=== PATIENT | male | born 1990 | race Caucasian/White ===

== ENCOUNTER 2017-12-04 17:51 | Inpatient (IN) | payer OTHER ==
[2017-12-04 17:45] VITALS: BP 135/89
[2017-12-04] MEDS ORDERED: LORAZEPAM 2 MG/1 ML VIAL IM PRN (18:30)
[2017-12-04] MEDS ORDERED: LORAZEPAM 1 MG TABLET PO PRN ×2 (18:30)
[2017-12-04] MEDS ORDERED: ACETAMINOPHEN 325 MG TABLET PO PRN (18:30)
[2017-12-04] MEDS ORDERED: IBUPROFEN 600 MG TABLET PO PRN (18:30)
[2017-12-04] MEDS ORDERED: MAG HYDROX/AL HYDROX/SIMETH 30 ML LIQUID UDC PO PRN (18:30)
[2017-12-04] MEDS ORDERED: diphenhydrAMINE 50 MG CAPSULE PO PRN (18:30)
[2017-12-04] MEDS ORDERED: THIAMINE HCL 200 MG/2 ML VIAL IM ONE (18:30)
[2017-12-04] MEDS ORDERED: MAGNESIUM HYDROXIDE 30 ML LIQUID UDC PO PRN (18:30)
[2017-12-04] MEDS ORDERED: ONDANSETRON ODT 4 MG TAB.RAPDIS SL PRN (18:30)
[2017-12-04] MEDS ORDERED: ENZY1CAP5 PO (23:06)
[2017-12-04] MEDS ORDERED: OXYM15SP NS (23:06)
[2017-12-04] MEDS ORDERED: TURM1CAP2 PO (23:06)
[2017-12-04] MEDS ORDERED: FOLI1TAB16 PO (23:06)
[2017-12-04] MEDS ORDERED: VITA-287 PO (23:06)
[2017-12-04] MEDS ORDERED: MILK175C4 PO (23:06)
[2017-12-04] MEDS ORDERED: CALC300T4 PO (23:06)
[2017-12-04] MEDS ORDERED: ZINC220C8 PO (23:06)
[2017-12-05] MEDS ORDERED: TUBERCULIN,PURIF.PROT.DERIV. 5 TU/0.1 ML TEST ID ONE (09:00)
[2017-12-05] MEDS ORDERED: MULTIVITAMINS,THERAPEUTIC TABLET PO SCH (09:00)
[2017-12-05] MEDS ORDERED: THIAMINE HCL 100 MG TABLET PO SCH (09:00)
[2017-12-05] MEDS ORDERED: FOLIC ACID 1 MG TABLET PO SCH (09:00)
== END 2017-12-04 19:45 | disposition left against medical advice (07) | DRG 894 ==
LOC: SRC 17:51
PROVIDERS: ADMIT Family Medicine Addiction Medicine; ATTEND Family Medicine Addiction Medicine
DX: F10.239 Alcohol dependence with withdrawal, unspecified (principal); Y90.9 Presence of alcohol in blood, level not specified; Z75.3 Unavailability and inaccessibility of health-care facilities
CPT/HCPCS: 36415; A4663

== ENCOUNTER 2017-12-04 21:24 | Inpatient (IN) | payer OTHER ==
[~2017-12-04] VITALS: Ht 182.9 cm; Wt 99.8 kg
--- NOTE | 2017-12-04 22:00 | NUR ---
Intake Pt is a 27 year old male being admitted for alcohol withdrawal, reported drinking Vodka 1/2 bottle/daily and Wine 1/2 bottle non-daily basis. Pt presented in intake, appeared irritable. Pt educated on the rules of the unit, regarding vital signs being taken Q4H, kitchen only to be accessed via staff member, smoking privileges only granted by nurse and any controlled substance to be wasted and not returned upon discharge. Pt educated on body search upon arrival to the unit. Pt became agitated and argumentative regarding the policy. However then stated, "whatever, okay, I'll do it". Admission to be completed upon pts arrival to the unit.
[2017-12-04] MEDS ORDERED: THIAMINE HCL 200 MG/2 ML VIAL IM ONE (22:15)
[2017-12-04] MEDS ORDERED: HYDROXYZINE PAMOATE 25 MG CAPSULE PO PRN (22:15)
[2017-12-04] MEDS ORDERED: ACETAMINOPHEN 325 MG TABLET PO PRN (22:15)
[2017-12-04] MEDS ORDERED: MIRALAX 17 GM POWD.PACK PO PRN (22:15)
[2017-12-04] MEDS ORDERED: diphenhydrAMINE 50 MG CAPSULE PO PRN (22:15)
[2017-12-04] MEDS ORDERED: DICYCLOMINE HCL 20 MG TABLET PO PRN (22:15)
[2017-12-04] MEDS ORDERED: MAGNESIUM HYDROXIDE 30 ML LIQUID UDC PO PRN (22:15)
[2017-12-04] MEDS ORDERED: ONDANSETRON 4 MG/2 ML VIAL IM PRN (22:15)
[2017-12-04] MEDS ORDERED: LORAZEPAM 2 MG/1 ML VIAL IM PRN (22:15)
[2017-12-04] MEDS ORDERED: ONDANSETRON ODT 4 MG TAB.RAPDIS SL PRN (22:15)
[2017-12-04] MEDS ORDERED: CLONIDINE HCL 0.1 MG TABLET PO PRN (22:15)
[2017-12-04] MEDS ORDERED: LOPERAMIDE HCL 2 MG CAPSULE PO PRN ×2 (22:15)
[2017-12-04] MEDS ORDERED: IBUPROFEN 600 MG TABLET PO PRN (22:15)
[2017-12-04] MEDS ORDERED: LORAZEPAM 1 MG TABLET PO PRN ×2 (22:15)
[2017-12-04] MEDS ORDERED: MAG HYDROX/AL HYDROX/SIMETH 30 ML LIQUID UDC PO PRN (22:15)
[2017-12-04 22:18] VITALS: BP 132/87
[2017-12-04 22:42] LABS: BASOPHILS # (AUTO) 0.1 K/uL (0.0-8.0); BASOPHILS % (AUTO) 1.2 % (0.0-2.0); EOSINOPHILS # (AUTO) 0.3 K/uL (0.0-0.7); EOSINOPHILS % (AUTO) 3.3 % (0.0-7.0); HEMATOCRIT 41.5 % (36.7-47.1); LYMPHOCYTES # (AUTO) 2.4 K/uL (20.0-40.0); LYMPHOCYTES % (AUTO) 27.8 % (20.5-51.5); MEAN CORPUSCULAR HEMOGLOBIN 29.5 uug (23.8-33.4); MEAN CORPUSCULAR HGB CONC 34 g/dL (32.5-36.3); MEAN CORPUSCULAR VOLUME 87.1 fL (73.0-96.2); MONOCYTES # (AUTO) 0.7 K/uL (2.0-10.0); MONOCYTES % (AUTO) 8.6 % (0.0-11.0); NEUTROPHILS # (AUTO) 5.2 K/uL (1.8-8.9); NEUTROPHILS % (AUTO) 59.1 % (38.5-71.5); PLATELET COUNT (AUTO) 301 K/uL (152-348); RED BLOOD CELL COUNT(AUTO) 4.77 MIL/uL (4.06-5.63); WHITE BLOOD COUNT (AUTO) 8.7 K/uL (3.6-10.2)
[2017-12-04 23:00] LABS: BILIRUBIN,TOTAL 0.2 mg/dL (0.2-1.0); POTASSIUM 3.5 mmol/L (3.5-5.1); TOTAL PROTEIN, SERUM 8.1 g/dL (6.4-8.2)
[2017-12-04] MEDS ORDERED: FOLI1TAB16 PO (23:06)
[2017-12-04] MEDS ORDERED: MILK175C4 PO (23:06)
[2017-12-04] MEDS ORDERED: VITA-287 PO (23:06)
[2017-12-04] MEDS ORDERED: TURM1CAP2 PO (23:06)
[2017-12-04] MEDS ORDERED: ENZY1CAP5 PO (23:06)
[2017-12-04] MEDS ORDERED: OXYM15SP NS (23:06)
[2017-12-04] MEDS ORDERED: ZINC220C8 PO (23:06)
[2017-12-04] MEDS ORDERED: CALC300T4 PO (23:06)
[2017-12-04 23:20] LABS: *AMPHETAMINE, URINE NEGATIVE (NEGATIVE); *BARBITURATE, URINE NEGATIVE (NEGATIVE); *CANNABINOID, URINE NEGATIVE (NEGATIVE); *COCCAINE, URINE NEGATIVE (NEGATIVE); *OPIATE, URINE NEGATIVE (NEGATIVE); *PHENCYCLIDINE SCREEN,URINE NEGATIVE (NEGATIVE)
[2017-12-04 23:37] LABS: THYROID STIMULATING HORMONE 5.092 mIU/mL (0.358-3.740)
--- NOTE | 2017-12-05 00:05 | NUR ---
AMA note Pt stated that he wanted to leave AMA D/T the fact that he had no desire to stay in treatment any longer despite encouragement from staff. Pt was educated about risks and benefits of leaving AMA. Pt verbalized understanding but still requested to leave. Multiple staff members spoke to patient without any success. V/S are WNL, Pt denies any suicidal/homicidal ideations. Dr. Dong notified. Pt was given a list of community resources in case he is in need of help. All belongings returned to patient. Pt left facility on 12-05-17 @0005.
[2017-12-05] MEDS ORDERED: FOLIC ACID 1 MG TABLET PO SCH (09:00)
[2017-12-05] MEDS ORDERED: THIAMINE HCL 100 MG TABLET PO SCH (09:00)
[2017-12-05] MEDS ORDERED: TUBERCULIN,PURIF.PROT.DERIV. 5 TU/0.1 ML TEST ID ONE (09:00)
[2017-12-05] MEDS ORDERED: 5 DAY TAPER OF LORAZEPAM -SERENITY PROTOCOL PO PRN (09:00)
[2017-12-05] MEDS ORDERED: MULTIVITAMINS,THERAPEUTIC TABLET PO SCH (09:00)
== END 2017-12-05 00:05 | disposition left against medical advice (07) | DRG 894 ==
LOC: SRC 21:24
PROVIDERS: ADMIT Family Medicine Addiction Medicine; ATTEND Family Medicine Addiction Medicine
PROC: HZ2ZZZZ Detoxification Services for Substance Abuse Treatment (ICD-10-PCS; principal; 2017-12-04)
DX: F10.239 Alcohol dependence with withdrawal, unspecified (principal); Y90.9 Presence of alcohol in blood, level not specified; F12.10 Cannabis abuse, uncomplicated
CPT/HCPCS: 36415; 80307; 83690; 83735; 84443; 85025; 86592; 86705; 86803; 87340; 87806; G0480